=== PATIENT | male | born 2000 | race African-American/Black ===

== ENCOUNTER 2019-06-18 08:18 | Emergency (ER) | payer OTHER ==
[2019-06-18 08:26] VITALS: BP 125/75; PULSE 84; TEMP 98.6; BMI 24.3
[2019-06-18] MEDS ORDERED: IBUPROFEN 400 MG TABLET (FP) PO ONE ×3 (08:40→08:46)
[2019-06-18] MEDS ORDERED: DEXAMETHASONE LIQUID 0.5 MG/5 ML PO ONE (08:40)
--- NOTE | 2019-06-18 08:40 | PDOC ---
History of Present Illness - General Chief Complaint: Sore Throat Stated Complaint: SORE THROAT Time Seen by Provider: 06/18/19 08:29 History Source: Patient Exam Limitations: No Limitations Past History - Travel Traveled outside of the country in the last 30 days: No Close contact w/someone who was outside of country & ill: No - Past Medical History Allergies/Adverse Reactions: Allergies Allergy/AdvReac Type Severity Reaction Status Date / Time No Known Allergies Allergy Verified 06/18/19 08:26 Home Medications: Ambulatory Orders Azithromycin [Zithromax 250mg Tablets -] 250 mg PO UTDICT #6 tab 06/18/19 Ibuprofen 600 mg PO Q6H #30 tablet 06/18/19 COPD: No - Immunization History Immunization Up to Date: Yes - Suicide/Smoking/Psychosocial Hx Smoking History: Never smoked Number of Cigarettes Smoked Daily: 0 Hx Alcohol Use: No Drug/Substance Use Hx: Yes (MARIJUANA) Review of Systems - Review of Systems Able to Perform ROS?: Yes Comments:: 06/18/19 08:30 CONSTITUTIONAL: Absent: fever, chills, diaphoresis, generalized weakness, malaise, loss of appetite HEENT: Present: sore throat Absent: rhinorrhea, nasal congestion, throat pain, throat swelling, difficulty swallowing, mouth swelling, ear pain, eye pain, visual Changes CARDIOVASCULAR: Absent: chest pain, loss of consciousness, palpitations, irregular heart rate, peripheral edema RESPIRATORY: Absent: cough, shortness of breath, dyspnea with exertion, orthopnea, wheezing, stridor, hemoptysis MUSCULOSKELETAL: Absent: myalgia, arthralgia, joint swelling SKIN: Absent: rash, itching, pallor NEUROLOGIC: Present: headache Absent: focal weakness or paresthesias, dizziness, unsteady gait, seizure, mental status changes, bladder or bowel incontinence PSYCHIATRIC: Absent: anxiety, depression, suicidal or homicidal ideation, hallucinations. Is the patient limited [place] proficient: No *Physical Exam - Vital Signs Last Vital Signs Temp Pulse Resp BP Pulse Ox 98.6 F 84 16 125/75 97 06/18/19 08:23 06/18/19 08:23 06/18/19 08:23 06/18/19 08:23 06/18/19 08:23 - Physical Exam Comments: 06/18/19 08:31 GENERAL: The patient is awake, alert, and fully oriented, in no acute distress. HEAD: Normal with no signs of trauma. EYES: Pupils equal, round and reactive to light, extraocular movements intact, sclera anicteric, conjunctiva clear. THROAT: Erythematous, 3+ tonsils without exudate. (+) cervical LAD EXTREMITIES: Normal range of motion, no edema. NEUROLOGICAL: Normal speech, normal gait. PSYCH: Normal mood, normal affect. SKIN: Warm, Dry, normal turgor, no rashes or lesions noted. Medical Decision Making - Medical Decision Making 06/18/19 08:40 The patient is a 19 y/o M who presents to the ER with a week and a half of sore throat and difficulty swallowing. He has not taken any medication for his symptoms. He notes that he feels like his voice is different. Admits to associated headaches and dizziness. Denies fevers, chills, sob, diff breathing, chest pain, n/v/d. A/P: Sore throat On exam pt with erythematous and edematous tonsils (+) halitosis. Uvula midline Decadron, motrin, rapid strep ordered 06/18/19 09:56 Strep negative at this time However, given exam findings will treat with azithromycin at this time DC home with supportive therapy and PCP follow up I discussed the physical exam findings, ancillary test results and final diagnoses with the patient. I answered all of the patient's questions. The patient was satisfied with the care received and felt comfortable with the discharge plan and treatment plan. The Patient agrees to follow up with the primary care physician/specialist within 24-72 hours. Return precautions were given. *DC/Admit/Observation/Transfer Diagnosis at time of Disposition: Pharyngitis Qualifiers: Pharyngitis/tonsillitis etiology: unspecified etiology Qualified Code(s): J02.9 - Acute pharyngitis, unspecified - Discharge Dispostion Disposition: HOME Condition at time of disposition: Stable Decision to Admit order: No - Referrals Referrals: Jonah Thrasher MD [Staff Physician] - - Patient Instructions Printed Discharge Instructions: DI for Pharyngitis/Tonsillopharyngitis -- Adult Additional Instructions: You have a sore throat or pharyngitis. Rapid strep testing was negative today; however, given your exam findings, you are being treated with antibiotics Take the z-pack as directed You may take Motrin 600 mg every 6 hours as needed for pain. Please do warm water gargles and cough drops to help with your pain. Change your toothbrush when you started feeling better. Follow-up with your primary care doctor. Return to the ER for fever, difficulty breathing, difficulty swallowing, or if you have any changes in your symptoms. - Post Discharge Activity Forms/Work/School Notes: Back to Work
[2019-06-18] MEDS ORDERED: DEXAMETHASONE SOD PHOSPHATE 10 MG/1 ML VIAL ONE (08:43)
== END 2019-06-18 10:02 | disposition home or self-care (01) ==
LOC: JERFT 08:18
DX: J02.9 Acute pharyngitis, unspecified (principal)
CPT/HCPCS: 87070; 87880; 99282-25